=== PATIENT | male | born 1995 | race Caucasian/White ===

== ENCOUNTER 2020-07-19 12:22 | Emergency (ER) | payer OTHER, SELFPAY ==
[2020-07-19 12:37] VITALS: BP 146/88; PULSE 83; RESP 18; TEMP 36.7; O2SAT 100
--- NOTE | 2020-07-19 13:02 | ED.MALEGU ---
HPI - Male Genitourinary General Chief complaint: Urogenital-Male Stated complaint: uti Source: patient and RN notes reviewed Limitations: no limitations History of Present Illness HPI Narrative: The patient, previously mostly healthy chief marketing officer, presents with urinary problems. Patient states he has a shorter, couple day history of urinary frequency. No fever, hematuria, discharge, dysuria, rash, skin changes, polyuria/polydipsia; symptoms are mild, most noticeable symptom duration. Screening dip urine is negative, discussed will test with available tests. Related Data Allergies Allergy/AdvReac Type Severity Reaction Status Date / Time No Known Allergies Allergy Verified 07/19/20 12:41 Review of Systems Review of Systems: Narrative: The patient has been informed that they may have pre-hypertension or Hypertension based on a BP reading in the department. I recommend that the patient call the primary care provider listed on their discharge instructions or a physician of their choice this week to arrange follow up for further evaluation of possible pre-hypertension or Hypertension General/Constitutional: No weight loss,fever Eyes: N0: Redness,discharge Ears/Nose/Throat: No: Epistaxis,ear discharge Respiratory: Denies: Hemoptysis Gastrointestinal: No Vomiting, Bleeding-rectal Skin: No Lumps, eruption Neurologic: No Focal Weakness,Sz Hematologic: Denies: Petechiae/Purpura Psychiatric: No: Suicida ideationl All Other Systems: Reviewed and Negative [facility] Social History Social History Gender identity (if verbalized by the patient): Male Comments At time of signature, agree with nursing past medical, surgical, social and family history. There is no relevant family history pertinent to the presenting complaint Exam Narrative: Exam Narrative: General Appearance: Well appearing, Conjunctiva clear Ears: External ear normal Nose: Normal nose Mouth/Throat: Normal appearing, Normal lips Supple Respiratory: Airway patent, No respiratory distress Abdomen: Soft, Non-tender, bilateral descended testicles, no inguinal hernia, normal circumcised phallus Musculoskeletal: Full ROM Skin: Warm, Dry, no rash Neurological: A&O x3, Normal affect Course Vital Signs Vital signs: Vital Signs Temperature 98.1 F 07/19/20 12:37 Pulse Rate 83 07/19/20 12:37 Respiratory Rate 18 07/19/20 12:37 Blood Pressure 146/88 H 07/19/20 12:37 Pulse Oximetry 100 07/19/20 12:37 Temperature 98.1 F 07/19/20 12:37 Pulse Rate 83 07/19/20 12:37 Respiratory Rate 18 07/19/20 12:37 Blood Pressure 146/88 H 07/19/20 12:37 Pulse Oximetry 100 07/19/20 12:37 MDM - Male Genitourinary Lab Data Labs: Urine Glucose Negative Reference Range: Negative Urine Bilirubin Negative Reference Range: Negative Urine Ketone Negative Reference Range: Negative Urine Specific [place] 1.020 Reference Range:1.001-1.035 Urine Blood Negative Reference Range: Negative * * Urine pH 7.0 Reference Range: 5.0-9.0 Urine Protein Negative Reference Range: Negative Urine Urobilinogen 0.2 Reference Range: 0.2-1.0 Urine Nitrate Negative Reference Range: Negative Urine Leukocyte Negative Reference Range
== END 2020-07-19 13:09 | disposition home or self-care (01) ==
PROVIDERS: Emergency Provider Emergency Medicine
DX: R35.0 Frequency of micturition (principal)
CPT/HCPCS: 81003; 87086; 87491; 87591; 87661; 99203; G0463